=== PATIENT | male | born 1995 | race Caucasian/White ===

== ENCOUNTER 2022-09-28 09:17 | Emergency (ER) | payer SELFPAY ==
[2022-09-28 10:48] VITALS: BP 135/80; PULSE 49; RESP 16; TEMP 36.3; O2SAT 100
--- NOTE | 2022-09-28 12:11 | PC.NURSE ---
called twice at this time and no response
== END 2022-09-28 12:11 | disposition left against medical advice (07) ==
LOC: ANHED 14:10
DX: R10.32 Left lower quadrant pain (principal)
CPT/HCPCS: 99199

== ENCOUNTER 2022-09-28 15:38 | Emergency (ER) | payer SELFPAY | END 2022-09-28 16:00 | disposition left against medical advice (07) | LOC: ANHED 16:19 | DX: Z53.21 Procedure and treatment not carried out due to patient leaving prior to being seen by health care provider (principal) | CPT/HCPCS: 99199 ==

== ENCOUNTER 2022-09-28 16:38 | Emergency (ER) | payer OTHER, SELFPAY ==
--- NOTE | ~2022-09-28 | CT_ITS ---
EXAMINATION: CT abdomen pelvis w con DATE: 09/28/2022 19:57 INDICATION: periumbilical/lower back pain, N/V TECHNIQUE: Computed tomography (CT) of the abdomen and pelvis was performed with 100 mL Omnipaque-350 intravenous contrast. Automated exposure control and iterative reconstruction technique were employe d. The dose-length product was 1272.30 mGy-cm. COMPARISON: None. FINDINGS: Lower thorax: Unremarkable Liver: Mild diffuse fatty infiltration Biliary/Gallbladder: Gallbladder is normal. No bile duct dilation. Pancreas: No mass or duct dilation. Spleen: Normal. Adrenals:No mass. Kidneys: No mass, stone, or hydronephrosis. GI tract: No small or large bowel dilation. Normal appendix. Diverticulosis without diverticulitis. Mesentery/Peritoneum: No ascites, mass, or free air. Retroperitoneum: No mass. Pelvis: Mild bladder wall thickening, the remaining pelvic organs are within normal limits. Soft Tissues: Bilateral gynecomastia. Bones: No acute osseous finding. IMPRESSION: Mild hepatic steatosis. Bladder wall thickening as can be seen with cystitis, correlate with urinalys is. Otherwise, no acute abdominopelvic process detected. Reviewed, dictated and finalized at location [facility]. [employer] IMPRESSION: Mild hepatic steatosis. Bladder wall thickening as can be seen with cystitis, c orrelate with urinalysis. Otherwise, no acute abdominopelvic process detected.
[2022-09-28 17:10] VITALS: BP 153/83; PULSE 60; RESP 18; TEMP 36.2; O2SAT 100
[2022-09-28 18:04] LABS: Add Urine Microscopic? NO; Appearance Urine Clear (Clear); Bilirubin Urine Negative (Negative); Blood Urine Negative (Negative); Color Urine Yellow (Yellow); Glucose Urine UA Negative (Negative); Ketones Urine Negative (Negative); Leukocyte Esterase Ur Negative LEU/UL (Negative); Nitrate Urine Negative (Negative); Protein Urine Negative (Negative); Urobilinogen Urine 0.2 mg/dL (<2.0)
[2022-09-28 18:24] LABS: Basophils Percent Auto 0.3 % (0.2-1.2); Eosinophils Absolute Auto 0.2 K/mm3 (0-0.3); Eosinophils Percent Auto 1.8 % (0-4.4); Hematocrit 45.7 % (42.0-52.0); Hemoglobin 16.3 g/dL (14.0-18.0); Immature Granulocyte Absolute 0.06 K/mm3 (0.00-0.031); Immature Granulocyte Percent A 0.6 % (0-0.5); Lymphocytes Absolute Auto 2.23 K/mm3 (0.9-3.2); Lymphocytes Percent Auto 23.3 % (18.3-44.2); Mean Corpuscular HGB Conc 35.7 g/dl (32-36); Mean Corpuscular Hemoglobin 31.8 pg (26-34); Mean Corpuscular Volume 89.3 fl (80-100); Monocytes Absolute Auto 0.6 K/mm3 (0.1-0.6); Monocytes Percent Auto 6.7 % (2.6-8.5); Neutrophils Absolute Auto 6.5 K/mm3 (1.3-6.7); Neutrophils Percent Auto 67.3 % (45.5-73.1); Platelet Count Result 311 k/mm3 (150-375); Red Blood Count 5.12 M/mm3 (4.6-6.20); Red Cell Distribution Width 11.5 % (11.5-14.5); White Blood Count 9.6 K/mm3 (4.5-10.0)
--- NOTE | 2022-09-28 18:28 | ED.ABDPAIN ---
HPI - Abdominal Pain General Chief Complaint: Abdominal Pain Stated Complaint: abd pain Time Seen by Provider: 09/28/22 17:40 Source: patient Mode of arrival: ambulatory Limitations: no limitations History of Present Illness HPI narrative: Patient is a 27-year-old male who presents to the ED with report of periumbilical abdominal pain, lower back pain. Patient reports that pain began last night while sitting on the couch. Began gradually, but continued to worsen throughout the day today. He went to [facility] urgent [facility] but was not seen. He then decided to come here. He also reports nausea, vomiting, and constipation. He did have a small bowel movement this morning, but had to strain w/ this. Denies frequent issues with constipation. Denies fever, diarrhea, rectal bleeding, dysuria, hematuria. Related Data Allergies Allergy/AdvReac Type Severity Reaction Status Date / Time No Known Allergies Allergy Verified 09/28/22 19:31 Review of Systems Review of Systems: CONSTITUTIONAL: Denies fever, chills, or sweats. ENT: Denies rhinorrhea, congestion, sore throat CARDIOVASCULAR: Denies chest pain. RESPIRATORY: Denies cough or dyspnea. GASTROINTESTINAL: See HPI. GENITOURINARY: See HPI. SKIN: Denies rash or itching. MUSCULOSKELETAL: See HPI. All systems reviewed & are unremarkable except as noted in HPI and below PMFSH Past Medical History Medical History No pertinent past medical history Surgical History Surgical History (Updated 09/28/22 @ 18:31 by Holly Glover PA-C) No pertinent past surgical history Social History Social History (Updated 09/28/22 @ 18:31 by Holly Glover PA-C) Smoking status: Never smoker Exam Narrative: GENERAL: Well appearing, obese, non-toxic, in mild acute distress due to pain. HEAD: Normocephalic, atraumatic. NECK: Supple. No adenopathy, no masses. RESPIRATORY: Airway patent, respirations nonlabored. Clear to auscultation bilaterally, no rales, rhonchi, wheezing. CARDIOVASCULAR: Regular rate and rhythm without murmurs, rubs, or gallops. Radial pulses 2+ and equal bilaterally. ABDOMINAL: Soft, mild tenderness to periumbilical region and epigastric region, nondistended, no hepatosplenomegaly. Normoactive BS. MUSCULOSKELETAL: Moves all extremities. Strength/ROM intact without gross deformities. No midline spinal tenderness or tenderness throughout lumbosacral region. SKIN: Warm, dry, normal color. No rashes. NEURO: A&O X3. Speech clear. Cranial nerves II-XII grossly intact. Steady gait. No ataxic movements. PSYCHIATRIC: Appropriate mood and affect. Normal interaction. Course Vital Signs Vital signs: Vital Signs Temperature 97.2 F L 09/28/22 17:10 Pulse Rate 60 09/28/22 17:10 Respiratory Rate 18 09/28/22 17:10 Blood Pressure 153/83 H 09/28/22 17:10 Pulse Oximetry 100 09/28/22 17:10 Temperature 97.2 F L 09/28/22 17:10 Pulse Rate 42 L 09/28/22 19:37 Respiratory Rate 14 09/28/22 19:37 Blood Pressure 145/93 H 09/28/22 19:37 Pulse Oximetry 100 09/28/22 19:37 MDM - Abdominal Pain MDM Narrative Medical decision making narrative: Patient presented to ED with 1 day history of periumbilical abdominal pain. Patient initially appeared mildly uncomfortable on exam. Vitals stable. CBC without leukocytosis. CMP unremarkable. Lipase NML. UA w/o signs of infection. CT scan of abd/pelvis obtained showing mild fatty liver, otherwise unremarkable. No acute intra-abdominal findings. No comment on large stool burden. Patient feeling significantly better after IV Tylenol and zofran. Discussed lab and imaging findings with patient and limitations of work-up. Advised patient to follow with primary care doctor for further evaluation. Will prescribe Bentyl for possible IBS type symptoms. Discussed constipation management at home. Patient given reasons to return. He agrees with plan. D/C in s
[2022-09-28 18:38] LABS: Alanine Aminotransferase 82 U/L (6-50); Albumin Level 5.1 g/dL (3.5-5.1); Alkaline Phosphatase 79 U/L (38-126); Anion Gap 8 mmol/L (8-16); Aspartate Amino Transferase 46 U/L (17-59); Blood Urea Nitrogen 12 mg/dL (9-20); Calcium 9.8 mg/dL (8.4-10.2); Carbon Dioxide 30 mmol/L (22-30); Chloride 100 mmol/L (98-107); Estimated CRCL calculation 138 ml/min; Estimated Glomerular Filt Rate > 60; Glucose 98 mg/dL (65-110); Lipase 64 U/L (23-300); Potassium 4.2 mmol/L (3.4-5.0); Sodium 138 mmol/L (137-145)
[2022-09-28] MEDS: ONDANSETRON INJ 4 MG/2 ML VIAL IV PUSH (19:32)
[2022-09-28 19:37] VITALS: BP 145/93; PULSE 42; RESP 14; O2SAT 100
== END 2022-09-28 21:30 | disposition home or self-care (01) ==
PROVIDERS: Emergency Provider Physician Assistant
DX: R10.33 Periumbilical pain (principal); R11.2 Nausea with vomiting, unspecified
CPT/HCPCS: 36415; 74177; 80053; 81003; 83690; 85025; 96374; 96375; 99284; J0131; J2405; Q9967